=== PATIENT | male | born 1975 | race Caucasian/White ===

== ENCOUNTER 2020-01-23 09:16 | Outpatient (CLI) | payer OTHER, SELFPAY ==
--- NOTE | 2020-01-23 09:56 | MR_ITS ---
WS: [id number] MRI RIGHT ANKLE NONCONTRAST TECHNIQUE: Sagittal proton density, sagittal STIR, axial proton density, axial T1, axial T2 fat sat, coronal proton density, coronal proton density fat sat, coronal T2 fat sat. CLINICAL INFORMATION: POST-TRAUMATIC ARTHRITIS RIGHT ANKLE COMPARISON: Radiograph November 03, 2015 reviewed FINDINGS: Radiograph November 03, 2015 reviewed. Palpable marker overlying the lateral malleolus. Chronic appearing well-corticated avulsion tip of th e lateral malleolus. Well-corticated oval-shaped osteochondral lesion involving the undersurface of t he lateral malleolus. This measures approximately 5 mm with well-corticated sclerotic rim. Surroundin g bone edema in the distal fibula and lateral malleolus. Talar dome appears normal. Moderate degenera tive arthritis at the ankle mortise. Normal medial malleolus. Small joint effusion in the posterior talar recess. Distal Achilles is normal in appearance. Normal r etrocalcaneal bursa. Extensive longitudinal split tear involving the peroneus brevis tendon with ass ociated edema and tenosynovitis. Peroneus brevis is displaced anteriorly in the retro-malleolar groov e. Associated tenosynovitis along the common peroneal tendon sheath extending along the peroneus long us and brevis distally. Small amount of tenosynovitis along the flexor hallucis longus. Extensor compartment tendons are norm al in appearance. Soft tissue edema involving the ankle soft tissues worse about the lateral malleolu s. Normal plantar fascia. Normal calcaneus and talus. Normal visualized tarsal bones. IMPRESSION: 1. Extensive longitudinal split tear involving the peroneal brevis with associated edema and tenosyn ovitis along the common peroneal tendon sheath. 2. Tiny well-corticated avulsion about the tip of the lateral malleolus appears chronic. 3. Small 5 mm oval-shaped osteochondral lesion involving the articular surface of the lateral malleo ina with a well-corticated sclerotic rim. Surrounding bone marrow edema. 4. Mild to moderate arthritis of the ankle mortise which otherwise appears normal. Normal talar dome . 5. Small amount of fluid in the talocalcaneal posterior recess. 6. Mild tenosynovitis along the flexor hallucis longus tendon sheath.
== END 2020-01-23 09:17 | disposition home or self-care (01) ==
LOC: RADWPI 09:21
PROVIDERS: Family Provider Family Medicine; PCP Internal Medicine; Visit Provider Podiatrist Foot & Ankle Surgery
DX: M19.171 Post-traumatic osteoarthritis, right ankle and foot (principal); M65.871 Other synovitis and tenosynovitis, right ankle and foot; S96.811A Strain of other specified muscles and tendons at ankle and foot level, right foot, initial encounter; X58.XXXA Exposure to other specified factors, initial encounter; M89.9 Disorder of bone, unspecified
CPT/HCPCS: 73721

== ENCOUNTER 2020-02-15 08:47 | Day surgery (SDC) | payer OTHER, SELFPAY ==
[2020-02-14 13:36] VITALS: BMI 34.9
[2020-02-15] VITALS (7 sets, daily range): BP systolic 107–138; BP diastolic 68–97; PULSE 70–90; RESP 16–18; TEMP 36.1–36.6; O2SAT 94–100
[2020-02-15] MEDS: sodium chloride 0.9% 1,000 ML 30 ML IV (09:12)
--- NOTE | 2020-02-15 09:35 | ANES.PREANE2 ---
Pre-Anesthetic Assessment Pre-Anesthetic Assessment: Height/Weight: Height 1.91 m Weight 127.006 kg Temp Pulse Resp BP Pulse Ox 97.3 F L 90 18 127/97 99 02/15/20 09:03 02/15/20 09:03 02/15/20 09:03 02/15/20 09:03 02/15/20 09:03 Preop Diagnosis: Right ankle impingement syndrome Proposed Procedure: Operation Date: 02/15/20 10:25 Proposed Procedures p Ankle Arthroscopy with debridement 84303 M25.871(Right) - Shahab Diaz DPM Familial anesthetic complications: Woke up aggressive and violent Was Beta Geovanna taken within 24 hours: N/A Last intake: Intake Last Liquid Date 02/14/20 Last Liquid Time 22:00 Last Solid Date 02/14/20 Last Solid Time 22:00 Social: Social History: Tobacco and No alcohol Comment: chews Exam: Pre-Anes Outpt Exam: alert, oriented x 3, clear to auscultation bilaterally and regular rate & rhythm Airway: Cervical ROM: WNL MP: 1 Dentition: Full Pulmonary: Pulmonary: None reported CV/HEM: CV/HEM: HTN Anesthetic Plan: ASA status: 2 Anesthesia: General Risk of > 500 ml blood loss (7ml/kg in children): No Meds/Allergies Current Medications: Current Medications Generic Name Dose Route Start Last Admin Trade Name Freq PRN Reason Stop Dose Admin Sodium Chloride 1,000 mls @ 30 ml s/hr 02/15/20 08:45 02/15/20 09:12 Sodium Chloride 0.9% IV 02/16/20 08:44 30 mls/hr .Q24H CHINEDU Administration PFSH Anesthesia PFSH: Surgical History (Updated 01/18/20 @ 21:49 by Shahab Diaz DPM) History of knee surgery Family History (Updated 01/14/20 @ 10:59 by Emma Zendejas LPN) Father Diabetes Denies family history of Cancer Social History (Updated 01/14/20 @ 10:59 by Emma Zendejas LPN) Smoking and tobacco status: current every day smoker smokeless tobacco Alcohol intake: current Alcohol intake frequency: few times a month Household members: spouse and children Marital status: Current occupational status: employed Current occupation: Self employed Data Anesthesia Cardiac Studies: No Data to Display
--- NOTE | 2020-02-15 11:34 | W.PM.OPSUD ---
Surgery/Procedure H&P Update DATE OF PROCEDURE: February 15, 2020 DATE H&P PERFORMED: 01/31/20 H&P UPDATE INFORMATION: I have reviewed H&P completed within last 30 days, I have examined patient prior to procedure, No changes to prior documentation and H&P is in [facility] – [place] EMR on date indicated PREOP DIAGNOSIS: Right ankle impingement syndrome PLANNED PROCEDURE: Operation Date: 02/15/20 10:25 Proposed Procedures p Ankle Arthroscopy with debridement 78231 M25.871(Right) - Sahhab Diaz DPM
--- NOTE | 2020-02-19 19:50 | P.OP_ITS ---
Operative Report Date of procedure: February 15, 2020 Pre-op Diagnosis: Right ankle impingement syndrome Post-op diagnosis: same Post-op Findings: Hemorrhagic synovitis, loose osseous body lateral anterior ankle, right Procedure Done: Ankle arthroscopy with debridement right ankle Implants: No implants Specimens removed/disposition: None Pathology: none sent Surgeon: Shahab Diaz D.P.M. Lawn Sprinkler Installer: Ursula Anesthesia: General Estimated blood loss: 2 mL IV fluids: None Urine output: None Complications: None Findings: Hemorrhagic synovitis and osseous loose body lateral gutter right ankle Condition: stable Disposition: PACU Brief History: Patient is a pleasant 44-year-old male with persistent right ankle pain he has focal pain at the right anterior lateral gutter. MRI findings were extensive including peroneal tendon tear, cystic changes to the distal medial fibula within the lateral gutter with loose osseous body. Patient has had persistent pain that is been progressively worse over the course of the past year and a half, there was no pain at the peroneal tendons he does not endorse any instability. Focusing on what is generating most pain is anterior lateral gutter recommended ankle arthroscopy with debridement he is agreeable. Risks include pain, bleeding, numbness, infection, damage to adjacent soft tissue structures, peroneal neuritis, neuropraxia, fistula formation and failure to alleviate pain. Patient seen in preop consent signed, signed right anterior ankle, he is agreeable wishes to proceed. Procedure: Under mild sedation the patient was brought to the operating room and placed on the operating table in supine position. A timeout was performed. Anesthesia was administered by the anesthesia service. Well-padded pneumatic tourniquet applied to the high calf right lower extremity. Right lower extremity was then scrubbed, prepped and draped utilizing normal aseptic technique. Right foot and ankle were examined a weighted with an Esmarch bandage and the tourniquet was inflated to 250 mmHg. Attention was directed to the right anterior ankle where landmarks were identified at the level of the ankle joint anteriorly just medial to the tibialis anterior tendon 10 cc of injectable saline was insufflated into the ankle joint utilizing an 18-gauge needle. A stab incision was performed utilizing a curved hemostat blunt dissection was carried down to joint capsule which was then entered establishing a medial viewing and instrumentation portal. Just lateral to the peroneal tertius a second anterior portal was established in like fashion. Utilizing Destini scope provided by [employer] 1.9 mm in diameter the anterior ankle was inspected there was significant synovitis largely nonhemorrhagic this was debrided utilizing a 2.0 and 3.0 shaver also appreciated at the distal anterior tibia was a anterior bony overgrowth which was also shaved without complication. Attention was directed to the medial gutter which appeared to have normal anatomy, talar dome was free of defect. Lateral gutter was inspected facets ligament and a 5 was intact and noted to not be impinging. There was hemorrhagic synovitis in the lateral gutter both anteriorly and laterally inferior to the talar dome this was debrided utilizing an oscillating shaver both 2.0 and 3.0 dafne. A 2.0 shaver was introduced into the lateral gutter under direct visualization and further debridement was performed of loose osseous body as well as cystic changes at the medial fibula. Once 2.0 shaver was utilized a 3.0 shaver was then introduced and was able to fit without friction or resistance for further debridement. Ankle joint was flushed and 10 cc of lidocaine 1% was introduced for postoperative anesthesia. Single 4-0 nylon stitch utilized at both anterior medial and anterior lateral portal. Incision sites were dressed with Adaptic, sterile 4 x 4's, Kerlix and Srini wrap. Cam boot was applied. Tourniquet was deflated and a prompt hyperemic response was noted to the distal digits of the right foot. Patient tolerated the procedure well and was transferred to the PACU with vital signs stable and vascular status intact. Patient may be weightbearing as tolerated in the cam boot at all times he is to elevate his right foot while at rest, was provided pain medication to be utilized judiciously, he is to keep his dressings clean, dry and intact until follow-up visit in 1 week. He was also provided my cell phone number will be contact me with any postoperative questions or concerns.
== END 2020-02-15 15:05 | disposition home or self-care (01) ==
PROVIDERS: PCP Internal Medicine; Visit Provider Podiatrist Foot & Ankle Surgery
PROC: (CPT 29897; principal; 2020-02-15 10:20)
DX: M25.871 Other specified joint disorders, right ankle and foot (principal); M65.871 Other synovitis and tenosynovitis, right ankle and foot; I10 Essential (primary) hypertension; F17.290 Nicotine dependence, other tobacco product, uncomplicated
CPT/HCPCS: 29897; 12345; C9290; J0690; J1100; J2370; J2405; J2704; J2710; J3010; J3490; J7030

== ENCOUNTER → 2023-06-23 14:57 | Outpatient (BNVA) | payer OTHER, SELFPAY | PROVIDERS: PCP Family Medicine; Referring Provider Family Medicine; Visit Provider Surgery | DX: Z12.11 Encounter for screening for malignant neoplasm of colon (principal) | CPT/HCPCS: 99202 ==

== ENCOUNTER 2023-10-13 07:45 | Day surgery (SDC) | payer OTHER, SELFPAY ==
[2023-10-13 07:58] VITALS: BP 132/110; PULSE 93; RESP 18; TEMP 36.1; O2SAT 96; BMI 33.5
[2023-10-13] MEDS: sodium chloride 0.9% 1,000 ML 30 ML IV (08:08)
[2023-10-13 08:14] LABS: Glucose Point of Care 270 mg/dL (70-110)
--- NOTE | 2023-10-13 08:15 | ANES.PREANE2 ---
Pre-Anesthetic Assessment Height/Weight: Height 1.93 m Weight 124.738 kg Temp Pulse Resp BP Pulse Ox O2 Del Method 97.0 F L 93 18 132/110 96 Room Air 10/13/23 07:58 10/13/23 07:58 10/13/23 07:58 10/13/23 07:58 10/13/23 07:58 10/13/23 07:58 Operation Date: 10/13/23 08:45 Proposed Procedures p 60795 colon G0121 screen colon A risk Z12.11(Not Applicable) - Dominguez Phillips MD Familial anesthetic complications: Woke up angry/violent from knee surgery Was Beta Geovanna taken within 24 hours: N/A Was Clonidine taken within 24 hours: N/A Last intake: Intake Last Liquid Date 10/12/23 Last Liquid Time 22:00 Last Solid Date 10/11/23 Last Solid Time 20:00 Social Tobacco (chews) and No alcohol Exam alert, oriented x 3, clear to auscultation bilaterally and regular rate & rhythm Airway Mallampati: Class IV Dentition: full CV/HEM Hypertension Metabolic Diabetes Mellitus Anesthetic Plan ASA status: 3 Anesthesia: MAC Risk of > 500 ml blood loss (7ml/kg in children): No Medications/Allergies Home Medications Medication Instructions Recorded Confirmed Last Taken Type lisinopril 40 mg tablet 40 mg PO DAILY 01/31/20 10/13/23 10/13/23 06:00 History naproxen sodium 220 mg capsule 220 mg PO BID PRN Pain 02/28/20 10/13/23 10/11/23 History (Aleve) empagliflozin 25 mg tablet 25 mg PO DAILY 06/23/23 10/13/23 10/12/23 History (Jardiance) glipizide 10 mg tablet 10 mg PO DAILY 06/23/23 10/13/23 10/12/23 History Fish Oil 1 cap PO DAILY 10/11/23 10/13/23 10/12/23 History Flonase 1 spray NOSTRIL-B DAILY PRN 10/11/23 10/13/23 10/12/23 History Allergic Symptoms Allergies Allergy/AdvReac Type Severity Reaction Status Date / Time No Known Allergies Allergy Verified 10/11/23 08:31 Current Medications Generic Name Dose Route Start Last Admin Trade Name Freq PRN Reason Stop Dose Admin Sodium Chloride 1,000 mls @ 30 mls/hr 10/13/23 08:00 10/13/23 08:08 Sodium Chloride 0.9% IV 30 mls/hr .Q24H CHINEDU Administration PFSH Anesthesia Medical History (Updated 04/30/20 @ 08:25 by Shahab Diaz DPM) Hx of primary hypertension Surgical History History of knee surgery Family History Father Diabetes Denies family history of Cancer Social History Smoking and tobacco/nicotine status: current every day tobacco/nicotine user smokeless tobacco Alcohol intake: current Alcohol intake frequency: few times a month Household members: spouse and children Marital status: Current occupational status: employed Current occupation: Self employed Data Anesthesia Cardiac Studies: No Data to Display
--- NOTE | 2023-10-13 08:59 | W.PM.OPSFHP ---
Same Day Surgery H&P Indication for Procedure/HPI DATE OF PROCEDURE: October 13, 2023 CHIEF COMPLAINT/INDICATIONFOR SURGICAL PROCEDURE: need for screening colonoscopy PREOP DIAGNOSIS: need for screening colonoscopy PLANNED PROCEDURE: Operation Date: 10/13/23 08:45 Proposed Procedures p 39157 colon G0121 screen colon A risk Z12.11(Not Applicable) - Dominguez Phillips MD Medications/Allergies* Home Medications Medication Instructions Recorded Confirmed Type lisinopril 40 mg tablet 40 mg PO DAILY 01/31/20 10/13/23 History naproxen sodium 220 mg capsule 220 mg PO BID PRN Pain 02/28/20 10/13/23 History (Aleve) empagliflozin 25 mg tablet 25 mg PO DAILY 06/23/23 10/13/23 History (Jardiance) glipizide 10 mg tablet 10 mg PO DAILY 06/23/23 10/13/23 History Fish Oil 1 cap PO DAILY 10/11/23 10/13/23 History Flonase 1 spray NOSTRIL-B DAILY PRN 10/11/23 10/13/23 History Allergic Symptoms Allergies/Adverse Reactions Allergy/AdvReac Type Severity Reaction Status Date / Time No Known Allergies Allergy Verified 10/11/23 08:31 Current Medications: Generic Name Dose Route Start Last Admin Trade Name Freq PRN Reason Stop Dose Admin Sodium Chloride 1,000 mls @ 30 mls/hr 10/13/23 08:00 10/13/23 08:08 Sodium Chloride 0.9% IV 30 mls/hr .Q24H CHINEDU Administration Pertinent History/Comorbid Conditions* Medical History (Updated 04/30/20 @ 08:25 by Shahab Diaz DPM) Hx of primary hypertension Surgical History (Updated 01/18/20 @ 21:49 by Shahab Diaz DPM) History of knee surgery Family History (Updated 01/14/20 @ 10:59 by Emma Zendejas LPN) Diabetes Father Denies family history of Cancer Social History Smoking and tobacco/nicotine status: current every day tobacco/nicotine user smokeless tobacco Alcohol intake: current Alcohol intake frequency: few times a month Household members: spouse and children Marital status: Current occupational status: employed Current occupation: Self employed Pertinent Exam Findings alert, oriented x 3 and clear to auscultation bilaterally Recommendations Surgery/Procedure today Coding Level of Care Code Acute Code for Chg Fwd
[2023-10-13 09:24] VITALS: BP 150/109; PULSE 91; RESP 20; TEMP 36.1; O2SAT 98
[2023-10-13 09:45] VITALS: BP 146/89; PULSE 75; RESP 16; O2SAT 99
--- NOTE | 2023-10-13 10:05 | ANE.PACU2 ---
Inpatient post-anesthesia follow up: Airway intact: Yes Vital signs: Temperature 97.0 F Pulse Rate 75 Respiratory Rate 16 Blood Pressure 146/89 Pulse Oximetry 99 Oxygen Delivery Me thod Room Air Oxygen Flow Rate Fraction of Inspir ed Oxygen Hydration adequate: Yes Nausea and vomiting: No Pain level: 1 Mental status: Baseline
== END 2023-10-13 10:05 | disposition home or self-care (01) ==
PROVIDERS: PCP Family Medicine; Visit Provider Surgery
PROC: 0DJD8ZZ Inspection of Lower Intestinal Tract, Via Natural or Artificial Opening Endoscopic (ICD-10-PCS; CPT 45378; principal; 2023-10-13 08:45)
DX: Z12.11 Encounter for screening for malignant neoplasm of colon (principal); I10 Essential (primary) hypertension; K63.5 Polyp of colon; F17.220 Nicotine dependence, chewing tobacco, uncomplicated; E11.9 Type 2 diabetes mellitus without complications
CPT/HCPCS: 36416; 45380; 82962; 88305; J2704; J7030

== ENCOUNTER 2025-02-20 16:17 | Outpatient (CLI) | payer OTHER, SELFPAY | END 2025-02-20 16:18 | disposition home or self-care (01) | LOC: SLEEP 16:19 | PROVIDERS: Family Provider Family Medicine; PCP Family Medicine; Referring Provider Family Medicine; Visit Provider Internal Medicine Pulmonary Disease | DX: G47.33 Obstructive sleep apnea (adult) (pediatric) (principal); G47.36 Sleep related hypoventilation in conditions classified elsewhere | CPT/HCPCS: G0399 ==

== ENCOUNTER 2025-04-01 20:00 | Outpatient (CLI) | payer OTHER, SELFPAY | END 2025-04-01 20:01 | disposition home or self-care (01) | LOC: SLEEP 04-02 02:54 | PROVIDERS: Family Provider Family Medicine; PCP Family Medicine; Referring Provider Family Medicine; Visit Provider Internal Medicine Pulmonary Disease | DX: G47.33 Obstructive sleep apnea (adult) (pediatric) (principal) | CPT/HCPCS: 95811 ==